=== PATIENT | female | born 1970 | race Two or more races ===

== ENCOUNTER 2018-08-24 14:15 | Inpatient (IN) | payer OTHER ==
[~2018-08-24] VITALS: Ht 160 cm; Wt 75.0 kg
[2018-08-24 14:32] VITALS: Ht 160 cm; Wt 75.0 kg
[2018-08-24] MEDS ORDERED: PANTOPRAZOLE 40 MG INJ IV STA (15:13)
[2018-08-24] MEDS ORDERED: LOSA50TA14 PO (15:21)
[2018-08-24] MEDS ORDERED: LEVO50TA71 PO (15:25)
[2018-08-24] MEDS ORDERED: FAMO20TA18 PO (15:26)
--- NOTE | 2018-08-24 17:09 | ERD ---
ER Documentation Chief Complaint Chief Complaint vomiting blood x 2 weeks seen at [facility] CT was negative HPI During the patient's encounter translation services were utilized Language: [Portuguese] Source: [video] 48-year-old female who presents to the emergency room with her third episode of hematemesis in the past 4 weeks. The patient was seen at [facility] on Sunday for similar things and had negative workup including CT. She was discharged home. Yesterday evening the patient had another episode of br ight red blood hematemesis. The patient denies any melena. No NSAID abuse alcohol abuse or smoking history. No significant pain. Patient denies any lightheadedness or dizziness. ROS All systems reviewed and are negative except as per history of present illness. Medications Home Meds Reported Medications Famotidine* (Famotidine*) 20 Mg Tablet, 20 MG PO BID, #60 TAB 08/24/18 Levothyroxine Sodium* (Levoxyl*) 50 Mcg Tablet, 50 MCG PO BEFORE BREAKFAST, #30 TAB 08/24/18 Losartan Potassium* (Losartan Potassium*) 50 Mg Tablet, 50 MG PO BID, TAB 08/24/18 Allergies Allergies: Coded Allergies: No Known Allergy (Verified , 08/24/18) PMhx/Soc Medical and Surgical Hx: pt denies Medical Hx, pt denies Surgical Hx Hx Alcohol Use: No Hx Substance Use: No Hx Tobacco Use: No Smoking Status: Current every day smoker FmHx Family History: No diabetes Physical Exam Vitals Vital Signs Date Temp Pulse Resp B/P (MAP) Pulse Ox O2 O2 Flow FiO2 Time Delivery Rate 08/24/18 18 150/68 17:09 (95) 08/24/18 Nasal 15:26 Cannula 08/24/18 98.3 59 18 190/84 100 14:32 (119) Physical Exam General: Well developed, well nourished, no acute distress Head: Normocephalic, atraumatic. Eyes: Pupils equally reactive, EOM intact ENT: Moist mucous membranes Neck: Supple, no lymphadenopathy Respiratory: Lungs clear bilaterally, no distress Cardiovascular: RRR, no murmurs, rubs, or gallops Abdominal: Soft, non-tender, non-distended, no peritoneal signs : Deferred MSK: No edema, no unilateral swelling, 5/5 strength Neurologic: Alert and oriented, moving all extremities, normal speech, no focal weakness, no cerebellar signs Skin: No rash Psych: Normal mood Result Diagram: 08/24/18 1521 08/24/18 1608 Results 24 hrs Laboratory Tests Test 08/24/18 15:21 08/24/18 16:08 White Blood Count 5.9 10^3/ul Red Blood Count 4.39 10^6/ul Hemoglobin 11.8 g/dl Hematocrit 36.3 % Mean Corpuscular Volume 82.7 fl Mean Corpuscular Hemoglobin 26.9 pg Mean Corpuscular Hemoglobin Concent 32.5 g/dl Red Cell Distribution Width 15.2 % Platelet Count 360 10^3/UL Mean Platelet Volume 10.8 fl Immature Granulocytes % 0.200 % Neutrophils % 46.2 % Lymphocytes % 43.6 % Monocytes % 7.1 % Eosinophils % 1.9 % Basophils % 1.0 % Nucleated Red Blood Cells % 0.0 /100WBC Immature Granulocytes # 0.010 10^3/ul Neutrophils # 2.7 10^3/ul Lymphocytes # 2.6 10^3/ul Monocytes # 0.4 10^3/ul Eosinophils # 0.1 10^3/ul Basophils # 0.1 10^3/ul Nucleated Red Blood Cells # 0.0 10^3/ul Prothrombin Time 13.3 Sec Prothrombin Time Ratio 1.0 INR International Normalized Ratio 1.00 Activated Partial Thromboplast Time 28.9 Sec Sodium Level 138 mmol/L Potassium Level 4.4 mmol/L Chloride Level 103 mmol/L Carbon Dioxide Level 27 mmol/L Anion Gap 8 Blood Urea Nitrogen 11 mg/dl Creatinine 0.71 mg/dl Est Glomerular Filtrat Rate mL/min > 60 mL/min Glucose Level 88 mg/dl Calcium Level 9.1 mg/dl Total Bilirubin 0.7 mg/dl Direct Bilirubin 0.00 mg/dl Indirect Bilirubin 0.7 mg/dl Aspartate Amino Transf (AST/SGOT) 28 IU/L Alanine Aminotransferase (ALT/SGPT) 16 IU/L Alkaline Phosphatase 67 IU/L Total Protein 8.1 g/dl Albumin 4.3 g/dl Globulin 3.80 g/dl Albumin/Globulin Ratio 1.13 Current Medications Medications Dose Sig/Noni Start Time Status Last (Trade) Ordered Route PRN Stop Time Admin Dose Reason Admin 40 mg ONCE STAT 08/24/18 DC 08/24/18 Pantoprazole IV 15:13 15:25 (Protonix 08/24/18 15:14 Iv) Procedures/MDM LAB INTERPRETATION: I reviewed the laboratory testing and it shows hemoglobin of 11, unknown baseline MEDICAL DECISION MAKING: The patient presents with her third episode of hematemesis in the past 4 weeks. The patient is hemodynamically stable. I have a low concern for significant upper GI hemorrhage however the patient's third episode in the past 4 weeks may warrant hospitalization. Laboratory testing was initiated. Patient has no evidence of cirrhosis. No evidence of peptic ulcer disease at this time. At this point I do not feel the patient warrants PPI drip given limited evidence of efficacy, and potential evidence of harm. A PPI bolus has been provided. ER COURSE: * The patient's Damari Blatchford bleeding score does not meet low risk criteria * For this reason the patient will be admitted for further management, GI consultation. [place]Blatch[place] Bleeding Score (GBS) from [employer] on 08/24/2018 All calculations should be rechecked by clinician prior to use RESULT SUMMARY: 1 points A GBS greater than zero suggests a High Risk GI bleed that is likely to require medical intervention: transfusion, endoscopy, or surgery. A higher GBS also correlated with a higher likelihood of needing intervention (scores ?6 are associated with >50% risk of needing intervention) CONSULTATION: Inpatient team to consult GI DISPOSITION PLAN: Accepting care team and consultations: I discussed the current laboratory data, diagnostic imaging and emergency care provided. Admitting team: Dr. Tubbs notified via [email or web address] Admitting team indication: Insurance directed Departure Diagnosis: Primary Impression: Hematemesis Nausea presence: without nausea Qualified Codes: K92.0 - Hematemesis Condition: Stable SHAUNA YODER MD Aug 24, 2018 17:09
[2018-08-24] MEDS ORDERED: ONDANSETRON 4 MG INJ IV PRN ×2 (18:00→18:30)
[2018-08-24] MEDS ORDERED: ACETAMINOPHEN 325 MG TAB PO PRN (18:00)
[2018-08-24 18:29] VITALS: BP 145/75; PULSE 66; RESP 18
[2018-08-24] MEDS ORDERED: HYDROCODONE/APAP (5/325) TAB PO PRN (18:30)
[2018-08-24] MEDS ORDERED: NICOTINE (14 MG/24 HR) PATCH TRANSDERM SCH (18:30)
[2018-08-24] MEDS ORDERED: hydrALAzine 20 MG INJ IV PRN (18:30)
[2018-08-24] MEDS ORDERED: NACL 0.9% 3 ML SYG IV SCH (18:30)
[2018-08-24] MEDS ORDERED: ALBUTEROL/IPRATROPIUM (NEB) 3 ML AMP HHN PRN (18:30)
[2018-08-24] MEDS ORDERED: MAGNESIUM HYDROXIDE 30ML CUP PO PRN (18:30)
[2018-08-24] MEDS ORDERED: DOCUSATE SODIUM 100 MG CAP PO PRN (18:30)
[2018-08-24] MEDS ORDERED: LORAZEPAM 2 MG INJ IV PRN (18:30)
[2018-08-24] MEDS ORDERED: morphine 2 MG INJ IV PRN (18:30)
[2018-08-24] MEDS ORDERED: NITROGLYCERIN (SL) 0.4 MG TAB SL PRN (18:30)
[2018-08-24] MEDS: SOD CHLORIDE 0.9% 1,000 ML IV SCH (18:57)
[2018-08-24 20:00] VITALS: BP 143/72; PULSE 61; RESP 18
[2018-08-24] MEDS: LOSARTAN 50 MG TAB PO SCH ×2 (20:19→20:24)
[2018-08-24] MEDS: PANTOPRAZOLE 40 MG INJ IV SCH (20:19)
--- NOTE | 2018-08-24 20:50 | HP ---
DATE OF ADMISSION: 08/24/2018 CHIEF COMPLAINT: Hematemesis. HISTORY OF PRESENT ILLNESS: A 48-year-old female with past medical history of remote gastric ulcer, hypertension, hypothyroidism who has been having hematemesis. Family and patient states this has bee n going off and on for the last 3 weeks, bright red blood, hematemesis, never had this before. Denie s any lower GI bleeding. She has also had some nausea symptoms. She also had decreased p.o. intake. Symptoms have been going on for the last 3 weeks. She did go to [facility] a few days ago and was evaluated there in the ER, although she did not have an EEG performed. She did have CT scan and was told that her workup there was negative. No history of any blood transfusions. No prior history of this before. She does state she has had a history of gastric ulcer and had an EGD performed over 15 years ago and has not had any problems since that time. When she came in today, hemoglobin was found to be 11.8. In the ER, she was given Protonix IV x1. She did say she took Aleve, but not every day. She just took periodically over the last 2 weeks, but that was more for headache symptoms. Denies any excess use of any Aleve. PAST MEDICAL HISTORY: As above. ALLERGIES: NO KNOWN DRUG ALLERGIES. HOME MEDICATIONS: 1. Losartan 50 mg b.i.d. 2. Famotidine 20 mg b.i.d. 3. Levoxyl 50 mcg before breakfast. PAST SURGICAL HISTORY: None. SOCIAL HISTORY: Negative for smoking, drinking, or IV drug abuse. FAMILY HISTORY: Noncontributory. PHYSICAL EXAMINATION: VITAL SIGNS: T-max 98.3, pulse 89, respirations 18, blood pressure 190 to 150 systolic over 84 to 60 diastolic. Satting 100% on nasal cannula. GENERAL: The patient is lying in bed, answering questions appropriately. Family members at bedside. No acute distress. HEENT: Pupils are equal, round and react to light. Extraocular muscles are intact. NECK: Supple, no thyromegaly. LUNGS: Clear to auscultation bilaterally. CARDIOVASCULAR: S1, S2 heard. No rubs or gallops. ABDOMEN: Soft. Mild tenderness to palpation in the right lower quadrant. Otherwise, nontender for the rest of her exam. No rebound or guarding. Normal bowel sounds. MUSCULOSKELETAL: No lower extremity edema bilaterally. NEUROLOGIC: No focal deficits. LABORATORIES: CBC is completely normal, including hemoglobin 11.8, hematocrit 36.3. Comprehensive m etabolic panel is normal. Coags are normal. No imaging studies were performed. ASSESSMENT AND PLAN: A 48-year-old female with hematemesis off and on for the last 3 weeks and a rem ote history of gastric ulcers, hypertension, hypothyroidism, and also decreased p.o. intake. 1. Hematemesis. Again, unclear source. She only has used looks like Aleve periodically. Again, re mote history of gastric ulcers in the past. No signs of any lower GI bleeding. Her last episode of upper GI bleeding was 24 hours ago, so admit the patient, put her on Protonix IV b.i.d. Get a GI con sult. Check TSH, A1c, lipid panel. Hold all anticoagulants at this time. Her hemoglobin is stable at 11.8. Low dose IV fluids, antiemetic medications. 2. Hypothyroidism. Continue current thyroid medicine and follow up the thyroid panel. 3. Hypertension. Blood pressure was elevated when she came in, hypertensive urgency, now it is impr haider since the patient has been admitted. Continue home blood pressure medicines on hydralazine p.r. n. systolic greater than 160. 4. Remote history of gastric ulcer. Again, see #1. Monitor for now. PPI IV b.i.d. Get a GI consu lt. 5. DVT prophylaxis, SCDs. Dictated By: STACEY OTT Conf#: [id number] DID#: [id number]
[2018-08-25 02:00] VITALS: BP 133/72; PULSE 64; RESP 18
[2018-08-25] MEDS ORDERED: LEVOTHYROXINE 50 MCG TAB ONE (04:48)
[2018-08-25] MEDS: SOD CHLORIDE 0.9% 1,000 ML IV SCH ×2 (04:50→16:26)
[2018-08-25] MEDS: PANTOPRAZOLE 40 MG INJ IV SCH ×2 (05:00→18:55)
[2018-08-25] MEDS: LEVOTHYROXINE 50 MCG TAB PO SCH (05:00)
[2018-08-25 08:36] VITALS: BP 164/81; PULSE 56; RESP 17
[2018-08-25] MEDS ORDERED: INFLUENZA VIRUS VACCINE 0.5 ML (DISPENSING) IM* ONE (09:00)
[2018-08-25] MEDS: LOSARTAN 50 MG TAB PO SCH ×2 (10:29→20:22)
--- NOTE | 2018-08-25 12:15 | CONS ---
Assessment/Plan Assessment/Plan Hospital Course (Demo Recall) Assessment: Recurrent small volume hematemesis. Rule out PUD/GERD/gastritis Remote history of gastric ulceration. Hypertension. Moderate obesity. Plan: PPI therapy. Monitor H&H and transfuse as necessary EGD tomorrow. Consultation Date/Type/Reason Admit Date/Time Aug 24, 2018 at 17:38 Date of Consultation: Aug 25, 2018 Type of Consult Gastroenterology Reason for Consultation Hematemesis Date/Time of Note DATE: 08/25/18 TIME: 12:12 Hx of Present Illness 48-year-old female with previous history of gastric ulcer. The patient complains of epigastric left upper quadrant abdominal pain for approximately 1 week, as this is been associated with persistent episodes of nausea and vomiting of small amounts of blood. There has been no melena or hematochezia. Her hemoglobin is rather stable. The patient has failed to respond to conventional therapy. Patient will be evaluated endoscopically tomorrow to determine the source of bleeding. The procedure was explained in detail including risks benefits alternatives. Further recommendation will depend the patient's clinical course as well as review of findings. Review of Systems: [A 12 system, review was conducted and is negative except as noted in the HPI or here.] Gastrointestinal and liver: [As noted in HPI] Past Medical History Medical History: hypertension Home Meds Reported Medications Famotidine* (Famotidine*) 20 Mg Tablet, 20 MG PO BID, #60 TAB 08/24/18 Levothyroxine Sodium* (Levoxyl*) 50 Mcg Tablet, 50 MCG PO BEFORE BREAKFAST, #30 TAB 08/24/18 Losartan Potassium* (Losartan Potassium*) 50 Mg Tablet, 50 MG PO BID, TAB 08/24/18 Medications Current Medications Ondansetron HCl (Zofran Inj) 4 mg BRIDGE ORDER PRN IV NAUSEA/VOMITING; Start at 18:00; Stop 08/25/18 at 17:59 Acetaminophen (Tylenol Tab) 650 mg ER BRIDGE PRN PO .MILD PAIN 1-3 OR TEMP; Start 08/24/18 at 18:00; Stop 08/25/18 at 17:59 IV Flush (NS 3 ml) 3 ml PER PROTOCOL IV ; Start 08/24/18 at 18:30 Ondansetron HCl (Zofran Inj) 4 mg Q6H PRN IV NAUSEA/VOMITING Last administered on 08/24/18at 20:19; Admin Dose 4 MG; Start 08/24/18 at 18:30 Acetaminophen (Tylenol Tab) 650 mg Q6H PRN PO .PAIN 1-3 OR TEMP; Start 08/24/18 at 18:30 Acetaminophen/ Hydrocodone Bitart (Piffard (5/325)) 1 tab Q6H PRN PO .MOD PAIN 4- 6; Start 08/24/18 at 18:30 Morphine Sulfate (morphine) 2 mg Q4H PRN IV .SEVERE PAIN 7-10; Start 08/24/18 at 18:30 Docusate Sodium (Colace) 100 mg Q12H PRN PO .CONSTIPATION; Start 08/24/18 at 18:30 Magnesium Hydroxide (Milk Of Mag) 30 ml DAILY PRN PO .CONSTIPATION; Start 08/24/18 at 18:30 Pantoprazole (Protonix Iv) 40 mg BID@0600,1800 IV Last administered on 08/25/18at 05:00; Admin Dose 40 MG; Start 08/24/18 at 21:00 Lorazepam (Ativan) 0.5 mg Q6H PRN IV ANXIETY; Start 08/24/18 at 18:30 Sodium Chloride 1,000 ml @ 100 mls/hr Q10H IV Last administered on 08/25/18at 04:50; Admin Dose 100 MLS/HR; Start 08/24/18 at 18:07 Albuterol/ Ipratropium (Duoneb) 3 ml Q4H RESP THERAPY PRN HHN SHORTNESS OF BREATH; Start 08/24/18 at 18:30 Hydralazine HCl (Apresoline) 10 mg Q6H PRN IV ELEVATED BLOOD PRESSURE; Start 08/24/18 at 18:30 Nitroglycerin (Nitroglycerin (Sl Tab) 0.4 Mg) 1 tab Q5M PRN SL ANGINA; Start 08/24/18 at 18:30 Levothyroxine Sodium (Synthroid) 50 mcg BEFORE BREAKFAST PO Last administered on 08/25/18at 05:00; Admin Dose 50 MCG; Start 08/25/18 at 07:00 Losartan Potassium (Cozaar) 50 mg BID PO Last administered on 08/25/18at 10:29; Admin Dose 50 MG; Start 08/24/18 at 21:00 Allergies: Coded Allergies: No Known Allergy (Verified , 08/24/18) Past Surgical History Past Surgical Hx: no surgical history Family History Significant Family History: no pertinent family hx Social History Alcohol Use: none Smoking Status: Never smoker Drug Use: none Exam/Review of Systems Exam Vitals Vital Signs Date Temp Pulse Resp B/P (MAP) Pulse Ox O2 O2 Flow FiO2 Time Delivery Rate 08/25/18 98.3 56 17 164/81 97 Room Air 08:36 (108) Intake and Output 08/24/18 08/24/18 08/25/18 1414:59 22:59 06:59 IntakeIntake Total 1040 ml BalanceBalance 1040 ml Exam PHYSICAL EXAMINATION: GENERAL: Well developed, well nourished, obese, alert & oriented x 3, in no ac neisha distress SKIN: No lesions, no stigmata chronic liver disease, no evidence of bleeding diathesis LYMPHATIC: No palpable lymphadenopathy. HEAD: Normocephalic, atraumatic, no tenderness. EYES: Pupils equal reactive to light and accommodation, full extraocular movements, sclera clear, non-icteric, no discharge. EARS/NOSE AND THROAT: Ears normal, nose normal, oropharynx normal, oral membranes well hydrated without lesions. NECK: Supple, no masses, thyroid normal, JVP within normal limits, carotids normal without bruits. CHEST: Inspection within normal limits. CARDIOVASCULAR: Heart: Regular rate and rhythm, no murmurs, gallops or rubs. Peripheral pulses present within normal limits, no cyanosis, clubbing or edemas. No pulsatile abdominal mass RESPIRATORY: Lungs clear to auscultation and percussion, no wheezing, no rubs GASTROINTESTINAL AND LIVER: Abdomen: Soft, moderate epigastric tenderness, non- distended, no hernias, no masses, no organomegaly, no ascites, no guarding, no rebound tenderness, normoactive bowel sounds. Rectal: Deferred. GENITOURINARY: [Female genitalia within normal limits.] EXTREMITIES: No cyanosis, clubbing or edema. Results Result Diagram: 08/25/18 0435 08/25/18 0435 Results 24hrs Laboratory Tests Test 08/24/18 15:21 08/24/18 16:08 08/25/18 04:35 White Blood Count 5.9 5.3 Red Blood Count 4.39 4.12 L Hemoglobin 11.8 L 11.0 L Hematocrit 36.3 L 34.5 L Mean Corpuscular Volume 82.7 83.7 Mean Corpuscular Hemoglobin 26.9 L 26.7 L Mean Corpuscular Hemoglobin Concent 32.5 31.9 L Red Cell Distribution Width 15.2 H 14.9 H Platelet Count 360 301 Mean Platelet Volume 10.8 H 10.5 H Immature Granulocytes % 0.200 0.200 Neutrophils % 46.2 44.2 Lymphocytes % 43.6 44.3 Monocytes % 7.1 7.4 Eosinophils % 1.9 2.9 Basophils % 1.0 1.0 Nucleated Red Blood Cells % 0.0 0.0 Immature Granulocytes # 0.010 0.010 Neutrophils # 2.7 2.3 Lymphocytes # 2.6 2.3 Monocytes # 0.4 0.4 Eosinophils # 0.1 0.2 Basophils # 0.1 0.1 Nucleated Red Blood Cells # 0.0 0.0 Prothrombin Time 13.3 Prothrombin Time Ratio 1.0 INR International Normalized Ratio 1.00 Activated Partial Thromboplast Time 28.9 Sodium Level 138 138 Potassium Level 4.4 4.1 Chloride Level 103 104 Carbon Dioxide Level 27 27 Anion Gap 8 7 Blood Urea Nitrogen 11 11 Creatinine 0.71 0.70 Est Glomerular Filtrat Rate mL/min > 60 > 60 Glucose Level 88 80 Calcium Level 9.1 8.6 Total Bilirubin 0.7 Direct Bilirubin 0.00 Indirect Bilirubin 0.7 Aspartate Amino Transf (AST/SGOT) 28 Alanine Aminotransferase (ALT/SGPT) 16 Alkaline Phosphatase 67 Total Protein 8.1 Albumin 4.3 Globulin 3.80 H Albumin/Globulin Ratio 1.13 Free Thyroxine 1.86 H Hemoglobin A1c 5.9 Phosphorus Level 3.3 Magnesium Level 2.0 Triglycerides Level 84 Cholesterol Level 155 LDL Cholesterol, Calculated 102 HDL Cholesterol 36 L Cholesterol/HDL Ratio 4.3 Thyroid Stimulating Hormone (TSH) 0.462 L Medications Medication Current Medications Ondansetron HCl (Zofran Inj) 4 mg BRIDGE ORDER PRN IV NAUSEA/VOMITING; Start 08/24/18 at 18:00; Stop 08/25/18 at 17:59 Acetaminophen (Tylenol Tab) 650 mg ER BRIDGE PRN PO .MILD PAIN 1-3 OR TEMP; Start 08/24/18 at 18:00; Stop 08/25/18 at 17:59 IV Flush (NS 3 ml) 3 ml PER PROTOCOL IV ; Start 08/24/18 at 18:30 Ondansetron HCl (Zofran Inj) 4 mg Q6H PRN IV NAUSEA/VOMITING Last administered on 08/24/18at 20:19; Admin Dose 4 MG; Start 08/24/18 at 18:30 Acetaminophen (Tylenol Tab) 650 mg Q6H PRN PO .PAIN 1-3 OR TEMP; Start 08/24/18 at 18:30 Acetaminophen/ Hydrocodone Bitart (Piffard (5/325)) 1 tab Q6H PRN PO .MOD PAIN 4- 6; Start 08/24/18 at 18:30 Morphine Sulfate (morphine) 2 mg Q4H PRN IV .SEVERE PAIN 7-10; Start 08/24/18 at 18:30 Docusate Sodium (Colace) 100 mg Q12H PRN PO .CONSTIPATION; Start 08/24/18 at 18:30 Magnesium Hydroxide (Milk Of Mag) 30 ml DAILY PRN PO .CONSTIPATION; Start 08/24/18 at 18:30 Pantoprazole (Protonix Iv) 40 mg BID@0600,1800 IV Last administered on 08/25/18at 05:00; Admin Dose 40 MG; Start 08/24/18 at 21:00 Lorazepam (Ativan) 0.5 mg Q6H PRN IV ANXIETY; Start 08/24/18 at 18:30 Sodium Chloride 1,000 ml @ 100 mls/hr Q10H IV Last administered on 08/25/18at 04:50; Admin Dose 100 MLS/HR; Start 08/24/18 at 18:07 Albuterol/ Ipratropium (Duoneb) 3 ml Q4H RESP THERAPY PRN HHN SHORTNESS OF BREATH; Start 08/24/18 at 18:30 Hydralazine HCl (Apresoline) 10 mg Q6H PRN IV ELEVATED BLOOD PRESSURE; Start 08/24/18 at 18:30 Nitroglycerin (Nitroglycerin (Sl Tab) 0.4 Mg) 1 tab Q5M PRN SL ANGINA; Start 08/24/18 at 18:30 Levothyroxine Sodium (Synthroid) 50 mcg BEFORE BREAKFAST PO Last administered on 08/25/18at 05:00; Admin Dose 50 MCG; Start 08/25/18 at 07:00 Losartan Potassium (Cozaar) 50 mg BID PO Last administered on 08/25/18at 10:29; Admin Dose 50 MG; Start 08/24/18 at 21:00 JOANN PROCTOR MD Aug 25, 2018 12:15
--- NOTE | 2018-08-25 13:57 | PN ---
Date/Time of Note Date/Time of Note DATE: 08/25/18 TIME: 13:55 Assessment/Plan VTE Prophylaxis Risk score (from Nsg)>0 risk: 1 SCD applied (from Nsg): Yes Pharmacological prophylaxis: other Lines/Catheters IV Catheter Type (from Nrs): Peripheral IV Urinary Cath still in place: No Assessment/Plan Hospital Course S: Patient now on clear liquid diet today. No episodes of any hematemesis overnight. Seen by GI team earlier today. O: VS - see below PHYSICAL EXAMINATION: GENERAL: lying in bed, answering questions appropriately. No acute distress. HEENT: Pupils are equal, round and react to light. Extraocular muscles are intact. NECK: Supple, no thyromegaly. LUNGS: Clear to auscultation bilaterally. CARDIOVASCULAR: S1, S2 heard. No rubs or gallops. ABDOMEN: Soft. Mild tenderness to palpation in the right lower quadrant. Otherwise, nontender for the rest of her exam. No rebound or guarding. Normal bowel sounds. MUSCULOSKELETAL: No lower extremity edema bilaterally. NEUROLOGIC: No focal deficits. ASSESSMENT AND PLAN: 48-year-old female with hematemesis off and on for the last 3 weeks and a remote history of gastric ulcers, hypertension, hypothyroidism, and also decreased p.o. intake. 1. Hematemesis-intermittent as outpatient, again, unclear source. She only has used looks like Aleve periodically. Again, remote history of gastric ulcers in the past. No signs of any lower GI bleeding. Her last episode of upper GI bleeding was 24 hours prior to admission -Per GI team, planning for EGD in 24 hours, continue Protonix IV BID -Continue to hold all anticoagulants at this time. Her hemoglobin is stable at the 11 range. -Continue low dose IV fluids, antiemetic medications. 2. Hypothyroidism. Appears stable - continue current thyroid medicine and follow up the thyroid panel. 3. Hypertension. Blood pressure was elevated when she came in, hypertensive urgency, now it is improved since the patient has been admitted. - Continue home blood pressure medicines on hydralazine p.r.n. systolic greater than 160. 4. Remote history of gastric ulcer. Again, see #1. - Monitor for now. - PPI IV b.i.d. 5. DVT prophylaxis, SCDs. Result Diagram: 08/25/18 0435 08/25/18 0435 Results 24hrs Laboratory Tests Test 08/24/18 15:21 08/24/18 16:08 08/25/18 04:35 White Blood Count 5.9 5.3 Red Blood Count 4.39 4.12 L Hemoglobin 11.8 L 11.0 L Hematocrit 36.3 L 34.5 L Mean Corpuscular Volume 82.7 83.7 Mean Corpuscular Hemoglobin 26.9 L 26.7 L Mean Corpuscular Hemoglobin Concent 32.5 31.9 L Red Cell Distribution Width 15.2 H 14.9 H Platelet Count 360 301 Mean Platelet Volume 10.8 H 10.5 H Immature Granulocytes % 0.200 0.200 Neutrophils % 46.2 44.2 Lymphocytes % 43.6 44.3 Monocytes % 7.1 7.4 Eosinophils % 1.9 2.9 Basophils % 1.0 1.0 Nucleated Red Blood Cells % 0.0 0.0 Immature Granulocytes # 0.010 0.010 Neutrophils # 2.7 2.3 Lymphocytes # 2.6 2.3 Monocytes # 0.4 0.4 Eosinophils # 0.1 0.2 Basophils # 0.1 0.1 Nucleated Red Blood Cells # 0.0 0.0 Prothrombin Time 13.3 Prothrombin Time Ratio 1.0 INR International Normalized Ratio 1.00 Activated Partial Thromboplast Time 28.9 Sodium Level 138 138 Potassium Level 4.4 4.1 Chloride Level 103 104 Carbon Dioxide Level 27 27 Anion Gap 8 7 Blood Urea Nitrogen 11 11 Creatinine 0.71 0.70 Est Glomerular Filtrat Rate mL/min > 60 > 60 Glucose Level 88 80 Calcium Level 9.1 8.6 Total Bilirubin 0.7 Direct Bilirubin 0.00 Indirect Bilirubin 0.7 Aspartate Amino Transf (AST/SGOT) 28 Alanine Aminotransferase (ALT/SGPT) 16 Alkaline Phosphatase 67 Total Protein 8.1 Albumin 4.3 Globulin 3.80 H Albumin/Globulin Ratio 1.13 Free Thyroxine 1.86 H Hemoglobin A1c 5.9 Phosphorus Level 3.3 Magnesium Level 2.0 Triglycerides Level 84 Cholesterol Level 155 LDL Cholesterol, Calculated 102 HDL Cholesterol 36 L Cholesterol/HDL Ratio 4.3 Thyroid Stimulating Hormone (TSH) 0.462 L Exam/Review of Systems Exam Vitals Vital Signs Date Temp Pulse Resp B/P (MAP) Pulse Ox O2 O2 Flow FiO2 Time Delivery Rate 08/25/18 98.3 56 17 164/81 97 Room Air 08:36 (108) Intake and Output 3/16/19 3/16/19 3/17/19 1515:00 23:00 07:00 IntakeIntake Total 1040 ml BalanceBalance 1040 ml Results Results 24hrs Laboratory Tests Test 08/24/18 15:21 08/24/18 16:08 08/25/18 04:35 White Blood Count 5.9 5.3 Red Blood Count 4.39 4.12 L Hemoglobin 11.8 L 11.0 L Hematocrit 36.3 L 34.5 L Mean Corpuscular Volume 82.7 83.7 Mean Corpuscular Hemoglobin 26.9 L 26.7 L Mean Corpuscular Hemoglobin Concent 32.5 31.9 L Red Cell Distribution Width 15.2 H 14.9 H Platelet Count 360 301 Mean Platelet Volume 10.8 H 10.5 H Immature Granulocytes % 0.200 0.200 Neutrophils % 46.2 44.2 Lymphocytes % 43.6 44.3 Monocytes % 7.1 7.4 Eosinophils % 1.9 2.9 Basophils % 1.0 1.0 Nucleated Red Blood Cells % 0.0 0.0 Immature Granulocytes # 0.010 0.010 Neutrophils # 2.7 2.3 Lymphocytes # 2.6 2.3 Monocytes # 0.4 0.4 Eosinophils # 0.1 0.2 Basophils # 0.1 0.1 Nucleated Red Blood Cells # 0.0 0.0 Prothrombin Time 13.3 Prothrombin Time Ratio 1.0 INR International Normalized Ratio 1.00 Activated Partial Thromboplast Time 28.9 Sodium Level 138 138 Potassium Level 4.4 4.1 Chloride Level 103 104 Carbon Dioxide Level 27 27 Anion Gap 8 7 Blood Urea Nitrogen 11 11 Creatinine 0.71 0.70 Est Glomerular Filtrat Rate mL/min > 60 > 60 Glucose Level 88 80 Calcium Level 9.1 8.6 Total Bilirubin 0.7 Direct Bilirubin 0.00 Indirect Bilirubin 0.7 Aspartate Amino Transf (AST/SGOT) 28 Alanine Aminotransferase (ALT/SGPT) 16 Alkaline Phosphatase 67 Total Protein 8.1 Albumin 4.3 Globulin 3.80 H Albumin/Globulin Ratio 1.13 Free Thyroxine 1.86 H Hemoglobin A1c 5.9 Phosphorus Level 3.3 Magnesium Level 2.0 Triglycerides Level 84 Cholesterol Level 155 LDL Cholesterol, Calculated 102 HDL Cholesterol 36 L Cholesterol/HDL Ratio 4.3 Thyroid Stimulating Hormone (TSH) 0.462 L Medications Medication Current Medications Ondansetron HCl (Zofran Inj) 4 mg BRIDGE ORDER PRN IV NAUSEA/VOMITING; Start 08/24/18 at 18:00; Stop 08/25/18 at 17:59 Acetaminophen (Tylenol Tab) 650 mg ER BRIDGE PRN PO .MILD PAIN 1-3 OR TEMP; Start 08/24/18 at 18:00; Stop 08/25/18 at 17:59 IV Flush (NS 3 ml) 3 ml PER PROTOCOL IV ; Start 08/24/18 at 18:30 Ondansetron HCl (Zofran Inj) 4 mg Q6H PRN IV NAUSEA/VOMITING Last administered on 08/24/18at 20:19; Admin Dose 4 MG; Start 08/24/18 at 18:30 Acetaminophen (Tylenol Tab) 650 mg Q6H PRN PO .PAIN 1-3 OR TEMP; Start 08/24/18 at 18:30 Acetaminophen/ Hydrocodone Bitart ([place] (5/325)) 1 tab Q6H PRN PO .MOD PAIN 4- 6; Start 08/24/18 at 18:30 Morphine Sulfate (morphine) 2 mg Q4H PRN IV .SEVERE PAIN 7-10; Start 08/24/18 at 18:30 Docusate Sodium (Colace) 100 mg Q12H PRN PO .CONSTIPATION; Start 08/24/18 at 18:30 Magnesium Hydroxide (Milk Of Mag) 30 ml DAILY PRN PO .CONSTIPATION; Start 08/24/18 at 18:30 Pantoprazole (Protonix Iv) 40 mg BID@0600,1800 IV Last administered on 08/25/18at 05:00; Admin Dose 40 MG; Start 08/24/18 at 21:00 Lorazepam (Ativan) 0.5 mg Q6H PRN IV ANXIETY; Start 08/24/18 at 18:30 Sodium Chloride 1,000 ml @ 100 mls/hr Q10H IV Last administered on 08/25/18at 04:50; Admin Dose 100 MLS/HR; Start 08/24/18 at 18:07 Albuterol/ Ipratropium (Duoneb) 3 ml Q4H RESP THERAPY PRN HHN SHORTNESS OF LUCHO ATH; Start 08/24/18 at 18:30 Hydralazine HCl (Apresoline) 10 mg Q6H PRN IV ELEVATED BLOOD PRESSURE; Start 08/24/18 at 18:30 Nitroglycerin (Nitroglycerin (Sl Tab) 0.4 Mg) 1 tab Q5M PRN SL ANGINA; Start 08/24/18 at 18:30 Levothyroxine Sodium (Synthroid) 50 mcg BEFORE BREAKFAST PO Last administered on 08/25/18at 05:00; Admin Dose 50 MCG; Start 08/25/18 at 07:00 Losartan Potassium (Cozaar) 50 mg BID PO Last administered on 08/25/18at 10:29; Admin Dose 50 MG; Start 08/24/18 at 21:00 STACEY PARKER Aug 25, 2018 13:57
[2018-08-25 15:23] VITALS: BP 148/71; PULSE 59; RESP 17
[2018-08-25 20:00] VITALS: BP 154/78; PULSE 68; RESP 19
[2018-08-26] MEDS: SOD CHLORIDE 0.9% 1,000 ML IV SCH ×2 (00:18→10:26)
[2018-08-26 02:19] VITALS: BP 133/64; PULSE 61; RESP 17
[2018-08-26] MEDS: PANTOPRAZOLE 40 MG INJ IV SCH (05:46)
[2018-08-26] MEDS: LEVOTHYROXINE 50 MCG TAB PO SCH (05:46)
[2018-08-26] MEDS ORDERED: PROPOFOL 200 MG INJ ONE (07:00)
[2018-08-26 08:22] VITALS: BP 160/72; PULSE 58; RESP 17
[2018-08-26] MEDS: LOSARTAN 50 MG TAB PO SCH (09:19)
[2018-08-26] MEDS: ACETAMINOPHEN 325 MG TAB PO PRN ×2 (09:20→12:37)
[2018-08-26] MEDS ORDERED: PROPOFOL 40 ML ONE (11:15)
[2018-08-26] MEDS ORDERED: LIDOCAINE 2% (SDV) 5 ML INJ ONE (11:15)
--- NOTE | 2018-08-26 11:19 | PREAC ---
Date/Time of Note Date/Time of Note DATE: 08/26/18 TIME: 11:17 Anesthesia Eval and Record Evaluation Time Pre-Procedure Interview DATE: 08/26/18 TIME: 11:17 Age 48 Sex female NPO: 8 hrs Preoperative diagnosis hematemesis Planned procedure EGD Past Medical History Past Medical History: Includes (gastric ulcer) Cardio: HTN Endo: Hypothyroid Surgery & Anesthesia Issues No known issue Meds Anticoagulation: No Beta Bárbara within 24 hr: No Reason Beta Bárbara not given: Pt. not on B-Bárbara Reported Medications Famotidine* (Famotidine*) 20 Mg Tablet, 20 MG PO BID, #60 TAB 08/24/18 Levothyroxine Sodium* (Levoxyl*) 50 Mcg Tablet, 50 MCG PO BEFORE BREAKFAST, #30 TAB 08/24/18 Losartan Potassium* (Losartan Potassium*) 50 Mg Tablet, 50 MG PO BID, TAB 08/24/18 Current Medications IV Flush (NS 3 ml) 3 ml PER PROTOCOL IV ; Start 08/24/18 at 18:30 Ondansetron HCl (Zofran Inj) 4 mg Q6H PRN IV NAUSEA/VOMITING Last administered on 08/24/18at 20:19; Admin Dose 4 MG; Start 08/24/18 at 18:30 Acetaminophen (Tylenol Tab) 650 mg Q6H PRN PO .PAIN 1-3 OR TEMP Last administered on 08/26/18at 09:20; Admin Dose 650 MG; Start 08/24/18 at 18:30 Acetaminophen/ Hydrocodone Bitart ([place] (5/325)) 1 tab Q6H PRN PO .MOD PAIN 4- 6; Start 08/24/18 at 18:30 Morphine Sulfate (morphine) 2 mg Q4H PRN IV .SEVERE PAIN 7-10; Start 08/24/18 at 18:30 Docusate Sodium (Colace) 100 mg Q12H PRN PO .CONSTIPATION; Start 08/24/18 at 18:30 Magnesium Hydroxide (Milk Of Mag) 30 ml DAILY PRN PO .CONSTIPATION; Start 08/24/18 at 18:30 Pantoprazole (Protonix Iv) 40 mg BID@0600,1800 IV Last administered on 08/26/18at 05:46; Admin Dose 40 MG; Start 08/24/18 at 21:00 Lorazepam (Ativan) 0.5 mg Q6H PRN IV ANXIETY; Start 08/24/18 at 18:30 Sodium Chloride 1,000 ml @ 100 mls/hr Q10H IV Last administered on 08/26/18at 10:26; Admin Dose 100 MLS/HR; Start 08/24/18 at 18:07 Albuterol/ Ipratropium (Duoneb) 3 ml Q4H RESP THERAPY PRN HHN SHORTNESS OF BREATH; Start 08/24/18 at 18:30 Hydralazine HCl (Apresoline) 10 mg Q6H PRN IV ELEVATED BLOOD PRESSURE; Start 08/24/18 at 18:30 Nitroglycerin (Nitroglycerin (Sl Tab) 0.4 Mg) 1 tab Q5M PRN SL ANGINA; Start 08/24/18 at 18:30 Levothyroxine Sodium (Synthroid) 50 mcg BEFORE BREAKFAST PO Last administered on 08/26/18at 05:46; Admin Dose 50 MCG; Start 08/25/18 at 07:00 Losartan Potassium (Cozaar) 50 mg BID PO Last administered on 08/26/18at 09:19; Admin Dose 50 MG; Start 08/24/18 at 21:00 Meds reviewed: Yes Allergies Coded Allergies: No Known Allergy (Verified , 08/24/18) Allergies Reviewed: Yes Labs/Studies Labs Reviewed: Reviewed by anesthesiologist Result Diagram: 08/26/18 0602 08/26/18 0602 Laboratory Tests 08/26/18 06:02 test: Negative Pre-procedure Exam Last vitals Vital Signs Date Temp Pulse Resp B/P (MAP) Pulse Ox O2 O2 Flow FiO2 Time Delivery Rate 08/26/18 98.6 58 17 160/72 98 Room Air 08:22 (101) Airway: Adequate mouth opening, Adequate thyromental dist Mallampati: Mallampati II Teeth: Abnormal (dentures removed (upper)) Lung: Normal Heart: Normal ASA Physical Status ASA physical status: 2 Emergency: None Planned Anesthetic General/MAC: MAC Pre-operative Attestations Prior to commencing anesthesia and surgery, the patient was re-evaluated, there was verification of: *The patient's identity *The results of appropriate recent lab work and preoperative vital signs *The above evaluation not changing prior to induction *Anesthetic plan, risk benefits, alternative and complications discussed with patient/family; questions answered; patient/family understands, accepts and wishes to proceed. DANIEL SPIVEY Aug 26, 2018 11:19
[2018-08-26 11:22] VITALS: BP 178/79; PULSE 14; RESP 13
--- NOTE | 2018-08-26 11:26 | HPN ---
Date/Time of Note Date/Time of Note DATE: 08/26/18 TIME: 11:26 Interval H&P Admission Note Pt. seen H&P reviewed: No system changes WOOD GREWAL Aug 26, 2018 11:26
[2018-08-26] MEDS ORDERED: FENTAnyl 50 MCG/ML VIAL IV PRN (11:30)
[2018-08-26] MEDS ORDERED: LABETALOL HCL 20MG INJ IV PRN (11:30)
[2018-08-26] MEDS ORDERED: DIPHENHYDRAMINE 50 MG INJ IV PRN (11:30)
[2018-08-26] MEDS ORDERED: ALBUTEROL 0.083% (NEB) 2.5 MG/3 ML AMP HHN PRN (11:30)
[2018-08-26] MEDS ORDERED: ACETAMINOPHEN 500 MG TAB PO PRN (11:30)
[2018-08-26] MEDS ORDERED: ONDANSETRON 4 MG INJ IV PRN (11:30)
[2018-08-26 12:10] VITALS: BP 136/67; PULSE 65; RESP 13
[2018-08-26] MEDS ORDERED: PANT40TA3 PO (12:58)
--- NOTE | 2018-08-26 13:06 | DS ---
Date/Time of Note Date/Time of Note DATE: 08/26/18 TIME: 13:02 Discharge Summary Admission/Discharge Info Admit Date/Time Aug 24, 2018 at 17:38 Discharge Date/Time Discharge Diagnosis 1. Gastritis, stable, protonix, follow up with GI 2. HTN, controlled 3. Hypothyroidism, on synthroid Patient Condition: Stable Hospital Course 48-year-old female with previous history of gastric ulcer. The patient complains of epigastric left upper quadrant abdominal pain for approximately 1 week, as this is been associated with persistent episodes of nausea and vomiting of small amounts of blood. There has been no melena or hematochezia. Her hemoglobin is rather stable. The patient has failed to respond to conventional therapy. EGD on 08/26 revealed mild gastritis without active bleeding. Patient has no abdominal pain, no nausea or vomiting today. She will be on double protonix as recommended by GI and follow up with GI outpatient. Home Meds Active Scripts Pantoprazole* (Protonix*) 40 Mg Tablet.dr, 40 MG PO BID for 40 Days, TAB Prov:ASHLEY KAUFMAN MD 08/26/18 Reported Medications Levothyroxine Sodium* (Levoxyl*) 50 Mcg Tablet, 50 MCG PO BEFORE BREAKFAST, #30 TAB 08/24/18 Losartan Potassium* (Losartan Potassium*) 50 Mg Tablet, 50 MG PO BID, TAB 08/24/18 Discontinued Reported Medications Famotidine* (Famotidine*) 20 Mg Tablet, 20 MG PO BID, #60 TAB 08/24/18 Follow-up Plan PCP and GI in one week Primary Care Provider Not On Staff Doctor Pending Labs Laboratory Tests Test 08/26/18 06:02 White Blood Count 5.3 10^3/ul (4.8-10.8) Red Blood Count 4.23 10^6/ul (4.20-5.40) Hemoglobin 11.3 g/dl (12.0-16.0) Hematocrit 35.3 % (37.0-47.0) Mean Corpuscular Volume 83.5 fl (82.0-101.0) Mean Corpuscular Hemoglobin 26.7 pg (29.0-33.0) Mean Corpuscular Hemoglobin Concent 32.0 g/dl (32.0-37.0) Red Cell Distribution Width 15.0 % (11.5-14.5) Platelet Count 319 10^3/UL (140-415) Mean Platelet Volume 10.5 fl (7.4-10.4) Immature Granulocytes % 0.200 % (0.001-0.429) Neutrophils % 50.2 % (39.0-77.0) Lymphocytes % 39.5 % (15.0-51.0) Monocytes % 6.8 % (0.0-11.0) Eosinophils % 2.4 % (0.0-7.0) Basophils % 0.9 % (0.0-2.0) Nucleated Red Blood Cells % 0.0 /100WBC (0.0-0.0) Immature Granulocytes # 0.010 10^3/ul (0.0-0.031) Neutrophils # 2.7 10^3/ul (1.6-7.5) Lymphocytes # 2.1 10^3/ul (0.8-2.9) Monocytes # 0.4 10^3/ul (0.3-0.9) Eosinophils # 0.1 10^3/ul (0.0-0.5) Basophils # 0.1 10^3/ul (0.0-0.1) Nucleated Red Blood Cells # 0.0 10^3/ul (0.0-0.0) Sodium Level 142 mmol/L (135-144) Potassium Level 3.9 mmol/L (3.5-5.1) Chloride Level 109 mmol/L (97-110) Carbon Dioxide Level 23 mmol/L (21-31) Anion Gap 10 (5-13) Blood Urea Nitrogen 6 mg/dl (7-20) Creatinine 0.57 mg/dl (0.44-1.00) Est Glomerular Filtrat Rate mL/min > 60 mL/min (>60) Glucose Level 88 mg/dl (70-220) Calcium Level 8.2 mg/dl (8.4-10.2) ASHLEY KAUFMAN MD Aug 26, 2018 13:06
[2018-08-26 15:31] VITALS: BP 173/72; PULSE 64; RESP 17
[2018-08-26] MEDS ORDERED: PANTOPRAZOLE (EC) 40 MG TAB PO SCH (18:00)
== END 2018-08-26 15:20 | disposition home or self-care (01) | DRG 379 ==
LOC: E/R 14:15 → PP2 17:38
PROVIDERS: ADMIT Hospitalist; ATTEND Internal Medicine
PROC: 0DJ08ZZ Inspection of Upper Intestinal Tract, Via Natural or Artificial Opening Endoscopic (ICD-10-PCS; principal; 2018-08-26 11:00)
DX: K92.0 Hematemesis (principal); K29.70 Gastritis, unspecified, without bleeding; E03.9 Hypothyroidism, unspecified; I10 Essential (primary) hypertension
CPT/HCPCS: 36415; 80048; 80053; 80061; 83036; 83735; 84100; 84439; 84443; 84703; 85025; 85610; 85730; 90686; 96374; 97161; C9113; J2405; J7030